=== PATIENT | male | born 1935 | race Caucasian/White ===

== ENCOUNTER → 2017-02-12 | Outpatient (CLI) | payer MEDICARE, OTHER ==
[2013-12-10 15:30] VITALS: BP 92/55
[~2017-02-12] MED LIST: ALFU10TA PO; ASPI-482 PO; ASPI325T11 PO; ATOR40TA59 PO; BIMA2.5D EACHEYE; BRIN10DR EACHEYE; CALC600T4 PO; CELE200C PO; CHOL100014 PO; CHOL400C2 PO; CYCL1DRO EACHEYE; DOXY100C14 PO; FERR-26 PO; LISI-338 PO; LUTE40CA PO; METO25TA4 PO; MULT1CAP15 PO; MULT1TAB52 PO; OMEG1CAP6 PO; OXYC-323 PO; Oxycodone Hcl/Acetaminophen PO; PRED5DRO16 LEFTEYE; RANI150T6 PO; UBID50TA PO; WARF-78 PO; WARF5TAB7 PO; Warfarin Sodium MC; ZEAXANTHIN PO
[2017-02-12 12:51] LABS: BILIRUBIN,URINE NEGATIVE (NEG); GLUCOSE,URINE NEGATIVE (NEG); NITRITE,URINE NEGATIVE (NEG); PROTEIN,URINE NEGATIVE (NEG-TRACE); UROBILINOGEN,URINE 0.2 mg/dL (0.2 mg/dL)
[2017-02-12 12:53] LABS: BASO % 0 % (0-3); EOS % 5 % (0-3); HEMATOCRIT 46.8 % (39.0-53.0); HEMOGLOBIN 15.5 g/dL (13.0-17.5); LYMPH # 1.5 x10^3/uL (1.0-4.8); LYMPH % 20 % (24-48); MEAN CORPUSCULAR HEMOGLOBIN 33 pg (25-35); MEAN CORPUSCULAR HGB CONC 33 g/dL (31-37); MEAN CORPUSCULAR VOLUME 101 fL (79-100); MONO % 7 % (0-9); NEUT % 67 % (31-73); PLATELET COUNT 159 x10^3/uL (140-400); RED BLOOD COUNT 4.65 x10^6/uL (4.30-5.70); RED CELL DISTRIBUTION WIDTH 12.9 % (11.5-14.5); WHITE BLOOD COUNT 7.3 x10^3/uL (4.0-11.0)
[2017-02-12 13:02] LABS: INR 1.1 (0.8-1.1); PROTHROMBIN TIME PATIENT 13.8 SEC (11.7-14.0)
[2017-02-12 13:03] LABS: BACTERIA,URINE 0 /HPF (0-FEW); RBC,URINE 0 /HPF (0-2); SQUAMOUS EPITHELIAL CELL,UR OCC /LPF; WBC,URINE 0 /HPF (0-4)
[2017-02-12 13:07] LABS: ALBUMIN 3.6 g/dL (3.4-5.0); CALCIUM 9.1 mg/dL (8.5-10.1); CREATININE 0.9 mg/dL (0.7-1.3); POTASSIUM 4.1 mmol/L (3.5-5.1)
--- NOTE | 2017-02-12 13:08 | EKG ---
[facility] [address] [place] [id number] Test Date: 2017-02-12 Test Time: 13:07:17 Pat Name: SAMPSON NAYAK Department: Room: Gender: M Painting Supervisor: : [id number] Requested By: SARAH FLEMING Order Number: [id number] Reading MD: London Redman MD Measurements Intervals Sunflower Rate: 72 P: IN: QRS: -21 QRSD: 66 T: -8 QT: 374 QTc: 411 Interpretive Statements SINUS RHYTHM LOW VOLTAGE NON-SPECIFIC ST/T CHANGES Electronically Signed On 02-12-2017 16:23:34 FRONT DESK SUPERVISOR by London Redman MD
--- NOTE | 2017-02-12 16:20 | RAD ---
2 views of the Chest 02/12/2017 2:10 PM Indication: PRE OP KNEE REPLACEMENT Comparison: Chest radiograph November 17, 2013 Findings: Bilateral shoulder arthroplasty noted. Thoracic dextroscoliosis noted. No pneumothorax or pleural effusion is identified. No focal infiltrates are seen. Prior median sternotomy noted. Mild aortic calcification is seen. Heart size is normal. A hiatal hernia is similar comparison studies. Impression: No evidence of acute cardiopulmonary process
== END | disposition home or self-care (01) ==
LOC: SURGPAT 11:40
PROVIDERS: ATTEND Orthopaedic Surgery
DX: M25.561 Pain in right knee (principal)
CPT/HCPCS: 36415; 71020; 80048; 81001; 82040; 82306; 85025; 85610; 85651; 85730; 87641; 93005

== ENCOUNTER 2017-05-07 14:52 | Inpatient (IN) | payer MEDICARE, OTHER ==
[2017-05-07] MEDS ORDERED: PNEUMOCOCCAL VAX SCREEN BY RX. MC (18:00)
[2017-05-07] MEDS ORDERED: INFLUENZA VAX SCREEN BY RX. MC (18:00)
[2017-05-07] MEDS: IV NORMAL SALINE 1000ML BAG 1,000 ML IV (18:22)
[2017-05-07] MEDS: MEROPENEM IV Push 1 GM VIAL. IVP (18:22)
[2017-05-07] MEDS: NOREPINEPHRIN PREMIX 250 ML IV (18:23)
[2017-05-07] MEDS: VANCOMYCIN PER PHARMACY MC (18:32)
[2017-05-07 18:59] LABS: LACTIC ACID 1.3 mmol/L (0.4-2.0)
[2017-05-07] MEDS ORDERED: MEROPENEM 1 GM in IV NORMAL SALINE 100ML 100 ML IV (22:00)
[2017-05-08 05:01] LABS: BILIRUBIN,URINE NEGATIVE (NEG); CLARITY,URINE CLEAR; COLOR,URINE YELLOW; GLUCOSE,URINE NEGATIVE (NEG); NITRITE,URINE NEGATIVE (NEG); PH,URINE 5.5; PROTEIN,URINE NEGATIVE (NEG-TRACE); UROBILINOGEN,URINE 0.2 mg/dL (0.2 mg/dL)
[2017-05-08] MEDS: NOREPINEPHRIN PREMIX 250 ML IV (05:08)
[2017-05-08 05:11] LABS: AMORPHOUS SEDIMENT,UR PRESENT /HPF; BACTERIA,URINE FEW /HPF (0-FEW); RBC,URINE 0 /HPF (0-2); SQUAMOUS EPITHELIAL CELL,UR OCC /LPF
[2017-05-08 05:19] LABS: MRSA BY PCR Negative (Negative)
[2017-05-08] MEDS ORDERED: BISACODYL 10 MG SUPP.RECT. (07:38)
[2017-05-08] MEDS ORDERED: SURGICEL HEMOSTAT 2X3 EACH. (07:38)
[2017-05-08 07:48] LABS: BASO # 0.1 x10^3/uL (0.0-0.2); BASO % 0 % (0-3); EOS # 0.1 x10^3/uL (0.0-0.7); EOS % 0 % (0-3); HEMATOCRIT 34.4 % (39.0-53.0); HEMOGLOBIN 11.1 g/dL (13.0-17.5); LYMPH # 0.4 x10^3/uL (1.0-4.8); LYMPH % 2 % (24-48); MEAN CORPUSCULAR HEMOGLOBIN 31 pg (25-35); MEAN CORPUSCULAR HGB CONC 32 g/dL (31-37); MEAN CORPUSCULAR VOLUME 96 fL (79-100); MONO % 5 % (0-9); NEUT # 18.5 x10^3uL (1.8-7.7); NEUT % 92 % (31-73); PLATELET COUNT 145 x10^3/uL (140-400); RED BLOOD COUNT 3.58 x10^6/uL (4.30-5.70); RED CELL DISTRIBUTION WIDTH 14.7 % (11.5-14.5)
[2017-05-08 07:52] LABS: ADD MAN DIFF? YES
[2017-05-08 07:58] LABS: INR 1.5 (0.8-1.1); PROTHROMBIN TIME PATIENT 16.9 SEC (11.7-14.0)
[2017-05-08 08:05] LABS: ANION GAP 10 (6-14); BLOOD UREA NITROGEN 30 mg/dL (8-26); BUN/CREATININE RATIO 30 (6-20); CALCIUM 8.2 mg/dL (8.5-10.1); CARBON DIOXIDE 23 mmol/L (21-32); CHLORIDE 107 mmol/L (98-107); GFR 71.7; GLUCOSE 112 mg/dL (70-99); POTASSIUM 3.3 mmol/L (3.5-5.1); SODIUM 140 mmol/L (136-145)
[2017-05-08] MEDS: VANCOMYCIN 1 GM in IV 1/2 NORMAL SALINE 250 ML IV (08:07)
[2017-05-08] MEDS: MEROPENEM IV Push 1 GM VIAL. IVP ×2 (08:08→21:20)
[2017-05-08 08:10] LABS: ALBUMIN 1.8 g/dL (3.4-5.0); ALBUMIN/GLOBULIN RATIO 0.6 (1.0-1.7); ALK PHOS 140 U/L (46-116); ALT (SGPT) 62 U/L (16-63); AST (SGOT) 107 U/L (15-37); TOTAL BILIRUBIN 0.5 mg/dL (0.2-1.0); TOTAL PROTEIN 4.9 g/dL (6.4-8.2)
[2017-05-08] MEDS: FLU VACC QS2017-18 (36MOS+)/PF 0.5 ML SYRINGE. VAX IM (09:00)
[2017-05-08] MEDS: VANCOMYCIN PER PHARMACY MC (09:50)
[2017-05-08 09:52] LABS: LACTATE DEHYDROGENASE 223 U/L (85-227)
[2017-05-08] MEDS: MORPHINE SULFATE 4 MG/ML DISP.SYRIN. IV (10:02)
[2017-05-08 10:27] LABS: PROSTATE SPECIFIC ANTIGEN 0.02 ng/mL (0.00-4.00)
[2017-05-08 10:40] LABS: PLT ESTIMATE ADEQUATE (ADEQUATE)
[2017-05-08 10:41] LABS: % LYMPHS 2 % (24-48); % MONOS 3 % (0-10); OVALOCYTES PRESENT; TOXIC GRANULATION PRESENT
[2017-05-08 10:42] LABS: % BANDS 13 % (0-9); % SEGS 82 % (35-66)
[2017-05-08] MEDS: MICAFUNGIN 100 MG in IV DEXTROSE 5% 100 ML IV (10:58)
[2017-05-08] MEDS ORDERED: ROCURONIUM 50 MG/5 ML VIAL. (14:12)
[2017-05-08] MEDS: IV NORMAL SALINE 1000ML BAG 1,000 ML IV (14:25)
[2017-05-08] MEDS: BUPIVACAINE-EPI 0.25%-1:200000 50 ML VIAL. (14:50)
[2017-05-08] MEDS: IOHEXOL 300 MG/ML 100ML VIAL. (14:50)
[2017-05-08] MEDS ORDERED: ONDANSETRON PF 4 MG/2 ML VIAL. (15:37)
[2017-05-08] MEDS ORDERED: PROPOFOL 20 ML IV (15:37)
[2017-05-08] MEDS ORDERED: PHENYLEPHRINE in 0.9% NACL PF 1 MG/10 ML SYRINGE. IV (15:37)
[2017-05-08] MEDS ORDERED: DEXAMETHASONE SOD PHOS 20 MG/5 ML VIAL. (15:37)
[2017-05-08] MEDS ORDERED: LIDOCAINE 2% PF Vial for OR 5 ML VIAL. (15:37)
[2017-05-08] MEDS: SURGICEL HEMOSTAT 4X8 EACH. (15:54)
[2017-05-08] MEDS ORDERED: SEVOFLURANE > 120 MINUTES. IH (16:20)
[2017-05-08] MEDS ORDERED: GLYCOPYRROLATE 1 MG/5 ML VIAL. (16:20)
[2017-05-08] MEDS ORDERED: NEOSTIGMINE METHYLSULFATE 5 MG/5 ML SYRINGE. (16:20)
[2017-05-08] MEDS: POTASSIUM CHLORIDE IV (18:40)
[2017-05-08] MEDS: NORMAL SALINE IV (18:40)
[2017-05-08] MEDS: HYDROcodone/APAP 5/325MG 1 TAB TABLET PO (21:33)
[2017-05-08 22:20] LABS: C DIFF BY PCR Negative (Negative)
[2017-05-09 05:15] LABS: ADD MAN DIFF? NO
[2017-05-09 05:59] LABS: ANION GAP 9 (6-14); BLOOD UREA NITROGEN 29 mg/dL (8-26); CALCIUM 7.6 mg/dL (8.5-10.1); CARBON DIOXIDE 22 mmol/L (21-32); CHLORIDE 112 mmol/L (98-107); CREATININE 0.9 mg/dL (0.7-1.3); GLUCOSE 102 mg/dL (70-99); POTASSIUM 3.9 mmol/L (3.5-5.1); SODIUM 143 mmol/L (136-145)
[2017-05-09 06:08] LABS: BASO % 0 % (0-3); EOS % 0 % (0-3); HEMATOCRIT 31.5 % (39.0-53.0); HEMOGLOBIN 10.1 g/dL (13.0-17.5); LYMPH # 0.6 x10^3/uL (1.0-4.8); LYMPH % 4 % (24-48); MEAN CORPUSCULAR HEMOGLOBIN 31 pg (25-35); MEAN CORPUSCULAR HGB CONC 32 g/dL (31-37); MEAN CORPUSCULAR VOLUME 95 fL (79-100); MONO # 0.9 x10^3/uL (0.0-1.1); MONO % 6 % (0-9); NEUT # 14.1 x10^3uL (1.8-7.7); NEUT % 90 % (31-73); PLATELET COUNT 146 x10^3/uL (140-400); RED CELL DISTRIBUTION WIDTH 14.3 % (11.5-14.5); WHITE BLOOD COUNT 15.6 x10^3/uL (4.0-11.0)
[2017-05-09] MEDS: IV NORMAL SALINE 1000ML BAG 1,000 ML IV ×2 (07:06→20:48)
[2017-05-09] MEDS: MICAFUNGIN 100 MG in IV DEXTROSE 5% 100 ML IV (08:43)
[2017-05-09] MEDS: VANCOMYCIN 1 GM in IV 1/2 NORMAL SALINE 250 ML IV (08:43)
[2017-05-09 08:58] LABS: VANC TR 7.6 mcg/mL (10.0-20.0)
[2017-05-09] MEDS: VANCOMYCIN PER PHARMACY MC (10:31)
[2017-05-09] MEDS: MEROPENEM IV Push 1 GM VIAL. IVP ×2 (10:53→22:40)
[2017-05-09] MEDS: VANCOMYCIN 750 MG in IV NORMAL SALINE 100ML 100 ML IV (20:47)
[2017-05-10 05:50] LABS: ALBUMIN 1.7 g/dL (3.4-5.0); ALBUMIN/GLOBULIN RATIO 0.7 (1.0-1.7); ALK PHOS 147 U/L (46-116); ALT (SGPT) 61 U/L (16-63); ANION GAP 10 (6-14); AST (SGOT) 77 U/L (15-37); BLOOD UREA NITROGEN 22 mg/dL (8-26); BUN/CREATININE RATIO 37 (6-20); CARBON DIOXIDE 22 mmol/L (21-32); CHLORIDE 110 mmol/L (98-107); CREATININE 0.6 mg/dL (0.7-1.3); GFR 129.3; GLUCOSE 110 mg/dL (70-99); POTASSIUM 3.9 mmol/L (3.5-5.1); SODIUM 142 mmol/L (136-145); TOTAL BILIRUBIN 0.8 mg/dL (0.2-1.0); TOTAL PROTEIN 4.3 g/dL (6.4-8.2)
[2017-05-10 06:57] LABS: ADD MAN DIFF? NO
[2017-05-10] MEDS: IV NORMAL SALINE 1000ML BAG 1,000 ML IV (07:00)
[2017-05-10 07:17] LABS: BASO % 0 % (0-3); EOS % 0 % (0-3); HEMATOCRIT 32.3 % (39.0-53.0); HEMOGLOBIN 10.5 g/dL (13.0-17.5); LYMPH # 0.8 x10^3/uL (1.0-4.8); LYMPH % 6 % (24-48); MEAN CORPUSCULAR HEMOGLOBIN 31 pg (25-35); MEAN CORPUSCULAR HGB CONC 32 g/dL (31-37); MEAN CORPUSCULAR VOLUME 94 fL (79-100); MONO # 0.8 x10^3/uL (0.0-1.1); MONO % 5 % (0-9); NEUT # 12.7 x10^3uL (1.8-7.7); NEUT % 89 % (31-73); PLATELET COUNT 184 x10^3/uL (140-400); RED BLOOD COUNT 3.43 x10^6/uL (4.30-5.70); RED CELL DISTRIBUTION WIDTH 14.3 % (11.5-14.5); WHITE BLOOD COUNT 14.3 x10^3/uL (4.0-11.0)
[2017-05-10] MEDS ORDERED: ONDANSETRON PF 4 MG/2 ML VIAL. IV (08:00)
[2017-05-10] MEDS ORDERED: ZEAXANTHIN PO (09:00)
[2017-05-10] MEDS: MULTIVITAMIN with MINERAL TABLET. PO (09:00)
[2017-05-10] MEDS ORDERED: NON FORMULARY ITEM (Ubidecarenone (Coq10) 100 MG) PO (09:00)
[2017-05-10] MEDS: DORZOLAMIDE 2% OPHTH SOLUTION 10ML BOTTLE. OU ×2 (09:00→22:13)
[2017-05-10] MEDS ORDERED: NON FORMULARY ITEM (Lutein 40 MG) PO (09:00)
[2017-05-10] MEDS: OMEGA-3 FATTY ACIDS/FISH OIL 1,000 MG CAPSULE. PO (09:00)
[2017-05-10] MEDS: CALCIUM CARBONATE 500 MG TABLET PO ×3 (09:00→17:35)
[2017-05-10] MEDS: MEROPENEM IV Push 1 GM VIAL. IVP ×2 (09:01→22:12)
[2017-05-10] MEDS: MICAFUNGIN 100 MG in IV DEXTROSE 5% 100 ML IV (09:01)
[2017-05-10] MEDS: VANCOMYCIN 750 MG in IV NORMAL SALINE 100ML 100 ML IV (09:09)
[2017-05-10] MEDS: METOPROLOL TART IMMED RELEASE 25 MG TABLET. PO ×2 (13:00→22:15)
[2017-05-10] MEDS: cycloSPORINE 0.05% OPTH 1 DROP DROPERETTE OU ×2 (17:35→22:14)
[2017-05-10] MEDS: FAMOTIDINE 20 MG TABLET. PO ×2 (17:36→22:15)
[2017-05-10] MEDS: ASPIRIN ENTERIC COATED 81 MG TABLET.DR. PO (17:36)
[2017-05-10] MEDS: TAMSULOSIN 0.4 MG CAP.ER.24H. PO (17:36)
[2017-05-10] MEDS ORDERED: NON FORMULARY ITEM (Prednisolone Acetate 1 DROP) LEFTEYE (21:00)
[2017-05-10] MEDS ORDERED: VANCOMYCIN 750 MG in IV NORMAL SALINE 250ML 250 ML IV (21:00)
[2017-05-10] MEDS: LATANOPROST 0.005% OPHTH SOLUTION 2.5ML BOTTLE. OU (22:13)
[2017-05-10] MEDS: ATORVASTATIN CALCIUM 40 MG TABLET. PO (22:14)
[2017-05-10] MEDS: LACTOBACILLUS RHAMNOSUS GG 1 CAPSULE. PO (22:14)
[2017-05-11] MEDS: cycloSPORINE 0.05% OPTH 1 DROP DROPERETTE OU ×2 (09:00→21:32)
[2017-05-11] MEDS: LACTOBACILLUS RHAMNOSUS GG 1 CAPSULE. PO ×2 (09:00→21:34)
[2017-05-11] MEDS: MEROPENEM IV Push 1 GM VIAL. IVP ×2 (09:00→21:30)
[2017-05-11] MEDS: FAMOTIDINE 20 MG TABLET. PO ×2 (10:10→21:34)
[2017-05-11] MEDS: CALCIUM CARBONATE 500 MG TABLET PO ×2 (10:10→18:20)
[2017-05-11] MEDS: ASPIRIN ENTERIC COATED 81 MG TABLET.DR. PO (10:10)
[2017-05-11] MEDS ORDERED: BRINZOLAMIDE 1% OU ×3 (11:30)
[2017-05-11] MEDS: BRINZOLAMIDE 1% OU ×2 (14:12→21:31)
[2017-05-11] MEDS ORDERED: BIMATOPROST 0.03% OU (21:00)
[2017-05-11] MEDS: BIMATOPROST 0.03% OU (21:31)
[2017-05-11] MEDS: METOPROLOL TART IMMED RELEASE 25 MG TABLET. PO (21:33)
[2017-05-11] MEDS: ATORVASTATIN CALCIUM 40 MG TABLET. PO (21:33)
[2017-05-11] MEDS: TAMSULOSIN 0.4 MG CAP.ER.24H. PO (21:34)
[2017-05-12] MEDS: ASPIRIN ENTERIC COATED 81 MG TABLET.DR. PO (08:21)
[2017-05-12] MEDS: METOPROLOL TART IMMED RELEASE 25 MG TABLET. PO ×2 (08:21→20:19)
[2017-05-12] MEDS: FAMOTIDINE 20 MG TABLET. PO ×2 (08:21→20:20)
[2017-05-12] MEDS: CALCIUM CARBONATE 500 MG TABLET PO ×2 (08:21→16:48)
[2017-05-12] MEDS: LACTOBACILLUS RHAMNOSUS GG 1 CAPSULE. PO ×2 (08:21→20:19)
[2017-05-12] MEDS: MEROPENEM IV Push 1 GM VIAL. IVP ×2 (08:22→20:19)
[2017-05-12] MEDS: BRINZOLAMIDE 1% OU ×2 (08:22→20:21)
[2017-05-12] MEDS: cycloSPORINE 0.05% OPTH 1 DROP DROPERETTE OU ×2 (08:27→20:21)
[2017-05-12] MEDS: ATORVASTATIN CALCIUM 40 MG TABLET. PO (20:20)
[2017-05-12] MEDS: HYDROcodone/APAP 5/325MG 1 TAB TABLET PO (20:20)
[2017-05-12] MEDS: TAMSULOSIN 0.4 MG CAP.ER.24H. PO (20:20)
[2017-05-12] MEDS: ACETAMINOPHEN 500 MG TABLET PO (20:20)
[2017-05-12] MEDS: BIMATOPROST 0.03% OU (20:21)
[2017-05-13] MEDS: FAMOTIDINE 20 MG TABLET. PO ×2 (08:30→21:06)
[2017-05-13] MEDS: ASPIRIN ENTERIC COATED 81 MG TABLET.DR. PO (08:30)
[2017-05-13] MEDS: LACTOBACILLUS RHAMNOSUS GG 1 CAPSULE. PO ×2 (08:31→21:06)
[2017-05-13] MEDS: METOPROLOL TART IMMED RELEASE 25 MG TABLET. PO ×2 (08:32→21:07)
[2017-05-13] MEDS: cycloSPORINE 0.05% OPTH 1 DROP DROPERETTE OU ×2 (08:33→21:06)
[2017-05-13] MEDS: BRINZOLAMIDE 1% OU ×2 (08:34→21:07)
[2017-05-13] MEDS: MEROPENEM IV Push 1 GM VIAL. IVP ×4 (08:34→21:08)
[2017-05-13] MEDS: CALCIUM CARBONATE 500 MG TABLET PO ×2 (08:36→17:26)
[2017-05-13] MEDS: POLYETHYLENE GLYCOL 3350 17 GM PACKET. PO ×2 (10:00→21:05)
[2017-05-13] MEDS: DOCUSATE SODIUM 100 MG CAPSULE. PO ×3 (10:00→21:06)
[2017-05-13] MEDS: ATORVASTATIN CALCIUM 40 MG TABLET. PO (21:06)
[2017-05-13] MEDS: TAMSULOSIN 0.4 MG CAP.ER.24H. PO (21:06)
[2017-05-13] MEDS: BIMATOPROST 0.03% OU (21:08)
[2017-05-14 08:16] LABS: ADD MAN DIFF? NO
[2017-05-14 08:23] LABS: BASO % 0 % (0-3); EOS % 0 % (0-3); HEMATOCRIT 34.4 % (39.0-53.0); HEMOGLOBIN 10.8 g/dL (13.0-17.5); LYMPH % 8 % (24-48); MEAN CORPUSCULAR HEMOGLOBIN 30 pg (25-35); MEAN CORPUSCULAR HGB CONC 31 g/dL (31-37); MEAN CORPUSCULAR VOLUME 94 fL (79-100); MONO # 0.8 x10^3/uL (0.0-1.1); MONO % 6 % (0-9); NEUT % 86 % (31-73); PLATELET COUNT 250 x10^3/uL (140-400); RED BLOOD COUNT 3.65 x10^6/uL (4.30-5.70); WHITE BLOOD COUNT 12.8 x10^3/uL (4.0-11.0)
[2017-05-14 08:32] LABS: ANION GAP 9 (6-14); BLOOD UREA NITROGEN 15 mg/dL (8-26); CALCIUM 8.3 mg/dL (8.5-10.1); CARBON DIOXIDE 26 mmol/L (21-32); CHLORIDE 105 mmol/L (98-107); CREATININE 0.7 mg/dL (0.7-1.3); GFR 108.2; GLUCOSE 111 mg/dL (70-99); POTASSIUM 3.3 mmol/L (3.5-5.1); SODIUM 140 mmol/L (136-145)
[2017-05-14] MEDS: METOPROLOL TART IMMED RELEASE 25 MG TABLET. PO (08:43)
[2017-05-14] MEDS: ASPIRIN ENTERIC COATED 81 MG TABLET.DR. PO (08:44)
[2017-05-14] MEDS: CALCIUM CARBONATE 500 MG TABLET PO (08:44)
[2017-05-14] MEDS: FAMOTIDINE 20 MG TABLET. PO (08:45)
[2017-05-14] MEDS: BRINZOLAMIDE 1% OU (08:48)
[2017-05-14] MEDS: MEROPENEM IV Push 1 GM VIAL. IVP (08:53)
[2017-05-14] MEDS: POLYETHYLENE GLYCOL 3350 17 GM PACKET. PO (09:00)
[2017-05-14] MEDS: cycloSPORINE 0.05% OPTH 1 DROP DROPERETTE OU (09:00)
[2017-05-14] MEDS: DOCUSATE SODIUM 100 MG CAPSULE. PO (09:00)
[2017-05-14] MEDS: LACTOBACILLUS RHAMNOSUS GG 1 CAPSULE. PO (10:47)
[2017-05-14] MEDS: POTASSIUM CHLORIDE 20 MEQ TABLET.ER. PO (10:48)
[2017-05-14] MEDS: CEFPODOXIME PROXETIL 100 MG TABLET. PO (10:49)
== END 2017-05-14 15:15 | disposition home health service (06) | DRG 853 ==
LOC: 1 WEST ICU 14:52 → 4 NORTH 05-09 23:15
PROVIDERS: Internal Medicine
PROC: 0FT44ZZ Resection of Gallbladder, Percutaneous Endoscopic Approach (ICD-10-PCS; principal; 2017-05-08 14:00)
PROC: BF101ZZ Fluoroscopy of Bile Ducts using Low Osmolar Contrast (ICD-10-PCS; 2017-05-08 14:00)
DX: A41.9 Sepsis, unspecified organism (principal); E43 Unspecified severe protein-calorie malnutrition; J96.01 Acute respiratory failure with hypoxia; R65.21 Severe sepsis with septic shock; G72.81 Critical illness myopathy; G93.41 Metabolic encephalopathy; I96 Gangrene, not elsewhere classified; J18.9 Pneumonia, unspecified organism; K80.12 Calculus of gallbladder with acute and chronic cholecystitis without obstruction; N17.9 Acute kidney failure, unspecified; I50.32 Chronic diastolic (congestive) heart failure; K57.32 Diverticulitis of large intestine without perforation or abscess without bleeding; I11.0 Hypertensive heart disease with heart failure; I27.20 Pulmonary hypertension, unspecified; I48.0 Paroxysmal atrial fibrillation; C61 Malignant neoplasm of prostate; E86.1 Hypovolemia; E78.5 Hyperlipidemia, unspecified; F03.90 Unspecified dementia, unspecified severity, without behavioral disturbance, psychotic disturbance, mood disturbance, and anxiety; G47.33 Obstructive sleep apnea (adult) (pediatric); H40.9 Unspecified glaucoma; I25.10 Atherosclerotic heart disease of native coronary artery without angina pectoris; I49.3 Ventricular premature depolarization; J45.909 Unspecified asthma, uncomplicated; K21.9 Gastro-esophageal reflux disease without esophagitis; K44.9 Diaphragmatic hernia without obstruction or gangrene; K66.0 Peritoneal adhesions (postprocedural) (postinfection); K82.8 Other specified diseases of gallbladder; Z96.649 Presence of unspecified artificial hip joint; Z96.653 Presence of artificial knee joint, bilateral; M19.90 Unspecified osteoarthritis, unspecified site; R29.6 Repeated falls; Z82.49 Family history of ischemic heart disease and other diseases of the circulatory system; Z85.46 Personal history of malignant neoplasm of prostate; Z88.0 Allergy status to penicillin; Z90.79 Acquired absence of other genital organ(s); Z91.81 History of falling; Z95.1 Presence of aortocoronary bypass graft
CPT/HCPCS: 36415; 73560; 74300; 78226; 80048; 80053; 80202; 81001; 83605; 83615; 83735; 85007; 85025; 85610; 87040; 87086; 87324; 87641; 88304; 93005; 93306; 94618; 96374; 96375; 97116-GP; 97162-GP; 97166-GO; 97535-GO; A9537; C1769; G0103; J1100; J2060; J2185; J2248; J2270; J2370; J2405; J2704; J2710; J3370; J3490; J7030; J7050; J7120; Q9967